=== PATIENT | male | born 1950 | race Caucasian/White ===

== ENCOUNTER 2018-04-30 09:58 | Outpatient (CLI) | payer MEDICARE, BC | END 2018-04-30 09:59 | disposition critical access hospital (66) | LOC: EMS 09:58 | PROVIDERS: ATTEND Surgery | DX: R07.81 Pleurodynia (principal); W11.XXXA Fall on and from ladder, initial encounter; Y92.008 Other place in unspecified non-institutional (private) residence as the place of occurrence of the external cause | CPT/HCPCS: A0425; A0429 ==

== ENCOUNTER 2018-04-30 10:15 | Observation (INO) | payer MEDICARE, BC ==
[2018-04-30] MEDS ORDERED: IOPAMIDOL-300 100 ML VIAL ONE (10:30)
[2018-04-30 10:47] LABS: BASOPHILS % (AUTO) 0.6 %; EOSINOPHILS # (AUTO) 0.3 10^3/uL (0.0-0.7); EOSINOPHILS % (AUTO) 4.8 %; HGB - HEMOGLOBIN 14.7 g/dL (14.0-18.0); LYMPHOCYTES # (AUTO) 1.4 10^3/uL (1.5-3.5); LYMPHOCYTES % (AUTO) 20.8 %; MEAN CORPUSCULAR HEMOGLOBIN 34.7 pg (27.0-31.0); MEAN CORPUSCULAR VOLUME 99.1 fL (80.0-94.0); MEAN PLATELET VOLUME 6.5 fL (7.4-11.4); MONOCYTES # (AUTO) 0.5 10^3/uL (0.0-1.0); MONOCYTES % (AUTO) 7.1 %; NEUTROPHILS # (AUTO) 4.6 10^3/uL (1.5-6.6); NEUTROPHILS % (AUTO) 66.7 %; PLT - PLATELET COUNT 211 10^3/uL (130-450); RED BLOOD COUNT 4.23 10^6/uL (4.70-6.10); RED CELL DISTRIBUTION WIDTH 12.3 % (12.0-15.0); WHITE BLOOD COUNT 6.9 x10^3/uL (4.8-10.8)
--- NOTE | 2018-04-30 10:49 | ED Physician Documentation ---
PD HPI Fall - Stated complaint Stated Complaint: FALL FROM LADDER - History obtained from History obtained from: Patient - History of Present Illness Mechanism of injury: Slipped Fall distance: Standing position, 10 to 15ft Where injury occurred: Home Timing - onset: Today Injury(ies) location: Chest, Back Quality of pain: Pain Associated symptoms: No: LOC, AMS, Amnesia, Seizures, Ear drainage, Nasal drainage, Neck pain, Weakness, Paresthesias, Dyspnea, Nausea / vomiting, Hematemesis, Abdominal distension Symptoms improve with: Rest Worsens with: Movement, Palpation Contributing factors: No: Anticoagulated, Intoxicated Similar symptoms before: Has not had sx before Recently seen: Not recently seen - Additional information Additional information: 67-year-old male who is visiting the [place] to clean out his parents house went up into the attic on a pulldown ladder and was bringing something down from the attic when the ladder collapsed and he fell onto a step and then down stairs. He landed directly on his left chest wall and has pain centered in that area he also has some pain in the left calf. He was not knocked unconscious he has no injury to his head or neck he denies any abdominal pain and he states that his pain is mild if he is not moving or breathing deeply. Review of Systems Constitutional: denies: Fever Eyes: denies: Decreased vision, Photophobia Ears: denies: Ear pain Nose: denies: Congestion Throat: denies: Sore throat Cardiac: reports: Chest pain / pressure Respiratory: denies: Dyspnea, Cough GI: denies: Abdominal Pain, Nausea, Vomiting, Constipation, Diarrhea : denies: Dysuria, Frequency Skin: denies: Rash Musculoskeletal: reports: Back pain, Extremity pain. denies: Neck pain Neurologic: denies: Generalized weakness, Focal weakness, Numbness PD PAST MEDICAL HISTORY - Present Medications Home Medications: Ambulatory Orders Medication Instructions Recorded Confirmed Fluticasone [Flonase] 2 sprays NS DAILY 04/30/18 04/30/18 Olopatadine HCl [Patanase] 1 spray NS DAILY 04/30/18 04/30/18 - Allergies Allergies/Adverse Reactions: Allergies Allergy/AdvReac Type Severity Reaction Status Date / Time Iodinated Contrast- Oral and AdvReac Hives Verified 04/30/18 10:26 IV Dye PD ED PE NORMAL - Vitals Vital signs reviewed: Yes (hypertensive and bradycardic) - General General: Alert and oriented X 3, No acute distress, Well developed/nourished, Other (The patient is on a backboard in C-spine precautions and appears comfortable despite the significant mechanism .) - HEENT HEENT: Atraumatic, PERRL, EOMI - Neck Neck: Supple, no meningeal sign, No bony TTP - Cardiac Cardiac: RRR, No murmur - Respiratory Respiratory: No respiratory distress, Clear bilaterally, Other (There is pain to palpation to the posterolateral chest wall on the left side. There is ecchymosis to the area and crepitance is palpable ) - Abdomen Abdomen: Soft, Non tender - Back Back: No CVA TTP, No spinal TTP - Derm Derm: Normal color, Warm and dry, No rash - Extremities Extremities: No deformity, No edema, Other (There is some mild left calf tenderness laterally ) - Neuro Neuro: Alert and oriented X 3, beater room helper 2-12 intact, No motor deficit, No sensory deficit, Normal speech Eye Opening: Spontaneous Motor: Obeys Commands Verbal: Oriented GCS Score: 15 - Psych Psych: Normal mood, Normal affect Results - Vitals Vitals: Vital Signs - 24 hr 04/30/18 04/30/18 04/30/18 10:15 10:30 11:48 Temperature 36.7 C Heart Rate 48 L 47 L 52 L Respiratory 15 15 15 Rate Blood Pressure 177/93 H 148/83 H 145/85 H O2 Saturation 100 100 100 Oxygen O2 Source Room air - EKG (time done) 1046 Rate: Rate (enter#) (47) Rhythm: Sinus bradycardia Ischemia: Normal ST segments Compare to prior EKG: Old EKG unavailable Computer interpretation: Agree with computer - Labs Labs: Laboratory Tests 04/30/18 04/30/18 04/30/18 10:40 10:40 10:40 WBC 6.9 RBC 4.23 L Hgb 14.7 Hct 41.9 L MCV 99.1 H MCH 34.7 H MCHC 35.0 RDW 12.3 Plt Count 211 MPV 6.5 L Neut # (Auto) 4.6 Lymph # (Auto) 1.4 L Preston # (Auto) 0.5 Eos # (Auto) 0.3 Baso # (Auto) 0.0 Absolute Nucleated RBC 0.01 Nucleated RBC % 0.1 Sodium 137 Potassium 4.5 Chloride 103 Carbon Dioxide 27 Anion Gap 7.0 BUN 25 H Creatinine 1.0 Estimated GFR (MDRD) 75 L Glucose 111 H Calcium 9.2 Total Bilirubin 0.4 AST 39 ALT 37 Alkaline Phosphatase 55 Troponin I < 0.04 Total Protein 6.2 L Albumin 3.8 Globulin 2.4 Albumin/Globulin Ratio 1.6 Lipase 25 - Rads (name of study) CT chest abdomen and pelvis without Radiology: Prelim report reviewed (Impression: 1. Acute posterior lateral left seventh through 11th rib fractures with adjacent mild pulmonary contusion and small pulmonary laceration. No pneumothorax.2 No evidence of acute traumatic injury in the abdomen or pelvis.3 Mild aneurysmal dilation of the ascending thoracic aorta.), EMP read indepedently, See rad report tib fib Radiology: Prelim report reviewed (Impression: Minimally displaced transverse lower fibular diaphyseal fracture.), EMP read indepedently, See rad report PD MEDICAL DECISION MAKING - ED course Complexity details: reviewed results, re-evaluated patient, considered differential, d/w patient, d/w family ED course: 67-year-old male with a significant 15 foot fall onto his back has multiple rib fractures and pulmonary contusion with subcutaneous air. He does appear comfortable when he is not moving. His cervical spine is cleared when he arrives to the emergency department he has had no head injury has no pain to palpation of the bone midline and is able to flex extend and rotate his neck without pain. Dr. Butt is consulted in the case and will admit the patient for observation. - Sepsis Event Vital Signs: Vital Signs - 24 hr 04/30/18 04/30/18 04/30/18 10:15 10:30 11:48 Temperature 36.7 C Heart Rate 48 L 47 L 52 L Respiratory 15 15 15 Rate Blood Pressure 177/93 H 148/83 H 145/85 H O2 Saturation 100 100 100 Oxygen O2 Source Room air Departure - Departure Disposition: 68 [facility] DC/Xfer Clinical Impression: Multiple rib fractures Qualifiers: Encounter type: initial encounter Fracture type: closed Laterality: left Qualified Code(s): S22.42XA - Multiple fractures of ribs, left side, initial encounter for closed fracture Pulmonary contusion Qualifiers: Encounter type: initial encounter Laterality: left Qualified Code(s): S27.321A - Contusion of lung, unilateral, initial encounter Condition: Stable Discharge Date/Time: 04/30/18 13:11
[2018-04-30 11:12] LABS: ALBUMIN 3.8 g/dL (3.2-5.5); ALBUMIN/GLOBULIN RATIO 1.6 (1.0-2.2); BILIRUBIN,TOTAL 0.4 mg/dL (0.2-1.0); CALCIUM 9.2 mg/dL (8.5-10.3); TOTAL PROTEIN 6.2 g/dL (6.7-8.2)
[2018-04-30] MEDS ORDERED: KETOROLAC 60 MG/2 ML VIAL IVP STA (11:18)
--- NOTE | 2018-04-30 12:01 | CT Report ---
Reason: 15 ft fall from ladder L posterior rib bruise Procedure Date: 04/30/2018 Accession Number: [id number] / [id number] Procedure: CT - Chest W/O CPT Code: FULL RESULT: EXAM: CT CHEST, ABDOMEN, AND PELVIS EXAM DATE: 04/30/2018 11:36 AM. CLINICAL HISTORY: Fall from 15 foot ladder. Pain is primarily left-sided. COMPARISONS: None. TECHNIQUE: Routine helical CT imaging was performed through the chest, abdomen, and pelvis. IV contrast: None. Enteric contrast: No. Reconstructions: Coronal and sagittal. In accordance with CT protocol optimization, one or more of the following dose reduction techniques were utilized for this exam: automated exposure control, adjustment of mA and/or KV based on patient size, or use of iterative reconstructive technique. FINDINGS: CHEST: Lungs/Pleura: Ill-defined hazy density in the inferolateral left lower lobe likely represents contusion. Superimposed linear lucency (axial lung algorithm series 3 image 52) likely represents a small pulmonary laceration. No significant pleural effusion. No pneumothorax. No suspicious pulmonary nodule, consolidation, or edema. Mediastinum: The heart size is normal. No pericardial effusion. No mediastinal adenopathy or hematoma. Ascending aorta measures up to 4.5 cm in diameter. No significant atherosclerotic calcifications. ABDOMEN/PELVIS: Solid organs: Noncontrast images of the liver, spleen, pancreas, and bilateral adrenal glands are normal. Small simple left superior pole exophytic cyst. Punctate nephrolithiasis bilaterally. No hydronephrosis or perinephric stranding bilaterally. Gallbladder/Bile Ducts: Unremarkable. Peritoneal Cavity/Bowel: No ascites or pneumoperitoneum. No bowel obstruction or abnormal stool burden. Minimal diverticulosis without diverticulitis. No inflammatory fat stranding. The appendix is well visualized and normal. Pelvic Organs: The urinary bladder and imaged pelvic organs demonstrate no significant abnormality. Vasculature: Minimal atherosclerosis without aneurysm. Bones: Acute fractures of the posterolateral left 7th through 11th ribs with displacement of the eighth and ninth rib fractures. No other acute fracture or other significant osseous abnormality. Other: Subcutaneous emphysema overlying the left rib fractures. IMPRESSION: 1. Acute posterolateral left 7th through 11th rib fractures with adjacent mild pulmonary contusion and small pulmonary laceration. No pneumothorax. 2. No evidence of acute traumatic injury in the abdomen or pelvis. 3. Mild aneurysmal dilatation of the ascending thoracic aorta. RADIA
--- NOTE | 2018-04-30 12:01 | CT Report ---
Reason: 15 ft fall from ladder L side Procedure Date: 04/30/2018 Accession Number: [id number] / [id number] Procedure: CT - Abdomen/Pelvis W/O CPT Code: FULL RESULT: EXAM: CT CHEST, ABDOMEN, AND PELVIS EXAM DATE: 04/30/2018 11:36 AM. CLINICAL HISTORY: Fall from 15 foot ladder. Pain is primarily left-sided. COMPARISONS: None. TECHNIQUE: Routine helical CT imaging was performed through the chest, abdomen, and pelvis. IV contrast: None. Enteric contrast: No. Reconstructions: Coronal and sagittal. In accordance with CT protocol optimization, one or more of the following dose reduction techniques were utilized for this exam: automated exposure control, adjustment of mA and/or KV based on patient size, or use of iterative reconstructive technique. FINDINGS: CHEST: Lungs/Pleura: Ill-defined hazy density in the inferolateral left lower lobe likely represents contusion. Superimposed linear lucency (axial lung algorithm series 3 image 52) likely represents a small pulmonary laceration. No significant pleural effusion. No pneumothorax. No suspicious pulmonary nodule, consolidation, or edema. Mediastinum: The heart size is normal. No pericardial effusion. No mediastinal adenopathy or hematoma. Ascending aorta measures up to 4.5 cm in diameter. No significant atherosclerotic calcifications. ABDOMEN/PELVIS: Solid organs: Noncontrast images of the liver, spleen, pancreas, and bilateral adrenal glands are normal. Small simple left superior pole exophytic cyst. Punctate nephrolithiasis bilaterally. No hydronephrosis or perinephric stranding bilaterally. Gallbladder/Bile Ducts: Unremarkable. Peritoneal Cavity/Bowel: No ascites or pneumoperitoneum. No bowel obstruction or abnormal stool burden. Minimal diverticulosis without diverticulitis. No inflammatory fat stranding. The appendix is well visualized and normal. Pelvic Organs: The urinary bladder and imaged pelvic organs demonstrate no significant abnormality. Vasculature: Minimal atherosclerosis without aneurysm. Bones: Acute fractures of the posterolateral left 7th through 11th ribs with displacement of the eighth and ninth rib fractures. No other acute fracture or other significant osseous abnormality. Other: Subcutaneous emphysema overlying the left rib fractures. IMPRESSION: 1. Acute posterolateral left 7th through 11th rib fractures with adjacent mild pulmonary contusion and small pulmonary laceration. No pneumothorax. 2. No evidence of acute traumatic injury in the abdomen or pelvis. 3. Mild aneurysmal dilatation of the ascending thoracic aorta. RADIA
[2018-04-30] MEDS ORDERED: KETOROLAC 30 MG/ML VIAL IVP STA (12:09)
--- NOTE | 2018-04-30 12:41 | HISTORY & PHYSICAL EXAMINATION ---
Chief Complaint - Chief Complaint Chief Complaint: Left chest pain History of Present Illness - Admitted From Admitted From:: ED - History Obtained From Records Reviewed: yes History obtained from: pt Exam Limitations: none - History of Present Illness HPI Comment/Other: 67 y/o man fell was coming down from the attic using a pulldown ladder and the ladder collapsed causing him to fall. He is visiting from out of town and was to be flying home today. However, he sustained several rib fractures and a pulmonary contusion. He currently denies any respiratory distress and is able to take a deep breath with pain, but without difficulty. SubQ air and a pulmonary contusion is seen on CT, but no pnuemothorax at this point. History - Past Medical History : reports: Other Other Past Medical History: prostate ca, kidney stones - Family & Social History Living Situation: With spouse/s.o. Meds/Allgy - Home Medications Home Medications: Ambulatory Orders Medication Instructions Recorded Confirmed Fluticasone [Flonase] 2 sprays NS DAILY 04/30/18 04/30/18 Olopatadine HCl [Patanase] 1 spray NS DAILY 04/30/18 04/30/18 - Allergies Allergies/Adverse Reactions: Allergies Allergy/AdvReac Type Severity Reaction Status Date / Time Iodinated Contrast- Oral and AdvReac Hives Verified 04/30/18 10:26 IV Dye Review of Systems - Respiratory Respiratory: reports: Other (left-sided chest pain, but no SOB or dyspnea) - Musculoskeletal Musculoskeletal: reports: Other (pain in left lower leg) - All Other Systems All Other Systems: reports: Reviewed and negative Exam - Vital Signs Reviewed Vital Signs: Yes Vital Signs: Vital Signs x48h Temp Pulse Resp BP Pulse Ox 04/30/18 11:48 52 L 15 145/85 H 100 04/30/18 10:30 47 L 15 148/83 H 100 04/30/18 10:15 36.7 C 48 L 15 177/93 H 100 - Physical Exam General Appearance: positive: No acute distress, Alert Eyes Bilateral: positive: EOMI, No scleral icterus Neck: positive: Nml inspection, Trachea midline Respiratory: positive: No respiratory distress, Breath sounds nml, Other ( moderate left-sided chest tenderness) Cardiovascular: positive: Regular rate & rhythm, No murmur Peripheral Pulses: positive: 2+ Abdomen: positive: Non-tender, Nml bowel sounds, No distention. negative: Tenderness Extremities: positive: Full ROM Neurologic/Psychiatric: positive: Oriented x3, Other (no focal deficits) Conclusion/Plan - Lab Results Fish Bones: 05/01/18 04:25 05/01/18 04:25 - Diagnostic Imaging Results Diagnostic Imaging Results: positive: Final report reviewed (images reviewed) Diagnostic Imaging Results Comments: CT shows posteriolateral fractures of ribs 7-11; pulmonary contusion; possible small pulmonary laceration. - Other Other Results/Comments: Impression: L-sided Rib fractures with pulmonary contusion Plan: Admit for observation; aggressive pulmonary toilet (including IS, Acapella , cough/deep breath); monitor O2 sat; f/u CXR in am. Xray of L tib/fib pending.
[2018-04-30 13:13] LABS: BILIRUBIN,URINE NEGATIVE (NEGATIVE); GLUCOSE, URINE (UA) NEGATIVE (NEGATIVE); KETONES,URINE (UA) NEGATIVE (NEGATIVE); LEUKOCYTE ESTERASE, URINE NEGATIVE (NEGATIVE); NITRITE,URINE NEGATIVE (NEGATIVE); OCCULT BLOOD,URINE NEGATIVE (NEGATIVE); PH,URINE 6.5 PH (5.0-7.5); PROTEIN,URINE NEGATIVE (NEGATIVE); UROBILINOGEN,URINE 0.2 (NORMAL) E.U./dL (NORMAL)
[2018-04-30 13:14] LABS: CLARITY,URINE CLEAR (CLEAR)
[2018-04-30] MEDS: ACETAMINOPHEN 500 MG TABLET PO SCH ×4 (14:15→23:41)
--- NOTE | 2018-04-30 15:51 | XRAY Report ---
Reason: fall Procedure Date: 04/30/2018 Accession Number: [id number] / [id number] Procedure: XR - Tib/Fib LT CPT Code: FULL RESULT: EXAM: LEFT TIBIA/FIBULA RADIOGRAPHY EXAM DATE: 04/30/2018 03:42 PM. CLINICAL HISTORY: Fall from ladder onto left side COMPARISON: None. TECHNIQUE: 2 views. FINDINGS: Bones: Transverse lowers fibular diaphyseal fracture with 2 mm of fracture margin offset. No fracture involving the tibia. Joints: Mild degenerative changes involving the knee. Soft Tissues: Normal. No soft tissue swelling. IMPRESSION: Minimally displaced transverse lower fibular diaphyseal fracture. RADIA
[2018-04-30] MEDS: SODIUM CHLORIDE FLUSH 0.9% 10 ML SYRINGE IVP SCH ×2 (16:18→23:41)
[2018-04-30] MEDS: MORPHINE 2 MG/ML SYRINGE IVP PRN ×3 (16:18→21:53)
[2018-04-30] MEDS: SODIUM CHLORIDE FLUSH 0.9% 10 ML SYRINGE IVP PRN ×2 (19:02→21:54)
[2018-04-30] MEDS: CELECOXIB 100 MG CAPSULE PO SCH (19:02)
--- NOTE | 2018-04-30 19:14 | CONSULTATION NOTE ---
Referring Provider Name of Referring Provider:: Dr. Orozco Consult Date: 04/30/18 (Fractured ribs, now w/complicating factor of fibular fx. ) Chief Complaint - Chief Complaint Chief Complaint: LLE fibula fracture History of Present Illness - Admitted From Admitted From:: ED - History Obtained From Records Reviewed: yes History obtained from: chart review, patient Exam Limitations: none - History of Present Illness HPI Comment/Other: Rubio Byrd (Bill) is a healthy 67-year old white male with a minimal past medical history of only chronic sinusitis, history of kidney stones, and recent prostate cancer now status post radiation treatments with his last PSA at 2.5. He presented to the ED after an accidental fall from a ladder in which there was a mechanical failure with the ladder he was using. Luckily he fell backward as this was not as far as if he would have fell forward that may have resulted in 2-floors in height. He states that he and his are visiting the [place] to clean out his parents house. He states that he went up into the attic to use a pulldown ladder and was bringing something down from the attic when the ladder collapsed and he fell onto a step and then down stairs. He landed directly on his left chest wall and has pain centered in that area he also has some pain in the left calf. He was not knocked unconscious he has no injury to his head or neck he denies any abdominal pain and he states that his pain is mild if he is not moving or breathing deeply. Imaging confirmed left rib fractures to #7-11, with pulmonary contusion. Vital signs were only slightly abnormal with an elevated blood pressure of 145/85, heart rates in the 50's. There were no significant laboratory abnormalities. General surgery was the original admitting service and Hospitalist service was consulted when the LLE fracture was discovered to assist in managing medically. I have spoken with Dr. Shields-orthopedic surgery who will plan to see in the AM. Thank you for this consult. History - Past Medical History Cardiovascular: reports: None Respiratory: reports: Other (chronic sinusitis) Neuro: reports: None Endocrine/Autoimmune: reports: None GI: reports: Other (inguinal hernia-now repaired) VOCATIONAL EDUCATION PROFESSIONAL: reports: None : reports: Nocturia, Other (status post prostate cancer) HEENT: reports: Chronic sinusitis Psych: reports: None Musculoskeletal: reports: None Derm: reports: None MRSA Hx?: No Other Past Medical History: prostate ca, kidney stones - Past Surgical History General: reports: Colonoscopy (~10 years ago, due for routine colonoscopy) Other past surgical history: radiation treatments for prostate cancer within the past year. - Family & Social History Family History: Mother: , Cancer, Father: , Alcoholism, CVA/TIA , Sister: Alive and Well, Cancer Family History Comment/Other: The patient mother of ovarian cancer, his fathe after complications of alcoholism and a CVA. He has one sister who is alive and well. She had uterine cancer, and thought to be in remission since her hysterectomy. Living arrangement: At home Living Situation: With spouse/s.o. Social History Notes: The patient has a named, Raysa of 39 years. They have no children. He is retired and was a high school computer science teacher. They live primarily in [place], [place]. They own a home in [place], [place] that they live at in the winter months. They have an inherited 20-acre property in [place], [place] that they are getting ready to sell. The patient remains very active and enjoys , travel, scuba diving, running, bicycling, and playing golf. He denies and current or past use of tobacco or illicit drugs. He admits to daily use of wine (2-3 glasses/day), and states that he had brewed his own in the past. He claims to eat very well organic foods. He wishes to be a FULL code. - Substance History Use: Uses substance without health or social issues: NONE Abuse: Recurrent use of substance despite neg consequences: NONE Dependence: Experiences withdrawal or developed tolerances: NONE - POLST Patient has POLST: No POLST Status: Full Code Meds/Allgy - Home Medications Home Medications: Ambulatory Orders Medication Instructions Recorded Confirmed Fluticasone [Flonase] 2 sprays NS DAILY 04/30/18 04/30/18 Olopatadine HCl [Patanase] 1 spray NS DAILY 04/30/18 04/30/18 - Allergies Allergies/Adverse Reactions: Allergies Allergy/AdvReac Type Severity Reaction Status Date / Time Iodinated Contrast- Oral and AdvReac Hives Verified 04/30/18 10:26 IV Dye Review of Systems - Constitutional Constitutional: denies: Fatigue, Fever, Chills, Weight gain, Weight loss - Eyes Eyes: denies: Pain, Irritation, Vision loss - Ears, Nose & Throat Ears, Nose & Throat: reports: Postnasal drainage. denies: Ear pain, Hearing loss, Hearing aids - Cardiovascular Cariovascular: denies: Irregular heart rate, Palpitations, Chest pain, Edema - Respiratory Respiratory: denies: Cough, Sputum production, Wheezing, Snoring - Gastrointestinal Gastrointestinal: denies: Abdominal pain, Abdominal distention, Constipation, Diarrhea, Change in bowel habits - Genitourinary Genitourinary: reports: Nocturia. denies: Dysuria, Frequency, Urgency, Hematuria - Musculoskeletal Musculoskeletal: denies: Muscle pain, Back pain, Muscle aches, Stiffness - Integumentary Integumentary: denies: Rash, Pruritis, Lesions, Dryness - Neurological Neurological: denies: General weakness, Focal weakness, Headache, Dizziness - Psychiatric Psychiatric: denies: Depression, Anxiety, Suicidal - Endocrine Endocrine: denies: Polyuria, Polydypsia, Polyphagia - Hematologic/Lymphatic Hematologic/Lymphatic: denies: Anemia, Bruising, Petechiae - All Other Systems All Other Systems: reports: Reviewed and negative Exam - Vital Signs Reviewed Vital Signs: Yes Vital Signs: Vital Signs x48h Temp Pulse Pulse Resp BP BP Pulse Ox 04/30/18 15:40 36.6 C 55 L 16 128/81 H 99 04/30/18 13:28 36.8 C 54 L 20 135/79 H 98 04/30/18 12:30 36.7 C 52 L 15 138/77 H 99 - Physical Exam General Appearance: positive: No acute distress, Alert Eyes Bilateral: positive: Normal inspection, PERRL ENT: positive: ENT inspection nml, Pharynx nml, No signs of dehydration Neck: positive: Nml inspection, Thyroid nml, No JVD, Trachea midline Respiratory: positive: Chest non-tender, No respiratory distress, Breath sounds nml Cardiovascular: positive: Regular rate & rhythm, No murmur, No gallop Peripheral Pulses: positive: 2+ Abdomen: positive: Non-tender, Nml bowel sounds, No distention Back: positive: CVA tenderness (L) (mild bruising, swelling.) Skin: positive: Color nml, No rash, Warm, Dry Extremities: positive: Non-tender, Full ROM, No pedal edema, Calf tenderness, Other (LLE mild swelling and tenderness with palpation) Neurologic/Psychiatric: positive: Oriented x3, CN's nml (2-12), Motor nml, Sensation nml, Mood/affect nml Reflexes: Bicep (R): 4+, Bicep (L): 4+, Ankle (R): 4+, Ankle (L): 4+ Conclusion/Plan - Diagnosis Diagnosis: Unspecified fracture of shaft of unspecified fibula, initial encounter for closed fracture (S82.409A). History of prostate cancer (Z85.46). Closed rib fracture (S22.39XA). Fall as cause of accidental injury at home as place of occurrence(W19.XXXA). Pulmonary contusion (S27.329A) - Plan Plan: Plan to continue pulmonary toileting, continue nasal spray and treat pain as needed. Daily chest x-ray. In regards to the LLE fracture, ortho surgery suggests to GREG wrap this evening, and the patient will be placed in a boot prior to discharge. PT consult to evaluate in the AM. Activity as tolerated, and let pain be the guide as to the amount of ambulation. - Lab Results Lab results reviewed: Yes Fish Bones: 05/01/18 04:25 05/01/18 04:25 - Diagnostic Imaging Results Diagnostic Imaging Results: positive: Final report reviewed Diagnostic Imaging Results Comments: EXAM: CT CHEST, ABDOMEN, AND PELVIS EXAM DATE: 04/30/2018 11:36 AM. IMPRESSION: 1. Acute posterolateral left 7th through 11th rib fractures with adjacent mild pulmonary contusion and small pulmonary laceration. No pneumothorax. 2. No evidence of acute traumatic injury in the abdomen or pelvis. 3. Mild aneurysmal dilatation of the ascending thoracic aorta. EXAM: LEFT TIBIA/FIBULA RADIOGRAPHY EXAM DATE: 04/30/2018 03:42 PM. IMPRESSION: Minimally displaced transverse lower fibular diaphyseal fracture. - EKG Results EKG Interpreted Independently: Yes
[2018-05-01 05:04] LABS: HGB - HEMOGLOBIN 13.6 g/dL (14.0-18.0); MEAN CORPUSCULAR HGB CONC 35.2 g/dL (32.0-36.0); MEAN CORPUSCULAR VOLUME 99.4 fL (80.0-94.0); MEAN PLATELET VOLUME 6.6 fL (7.4-11.4); RED BLOOD COUNT 3.89 10^6/uL (4.70-6.10); RED CELL DISTRIBUTION WIDTH 12.3 % (12.0-15.0); WHITE BLOOD COUNT 6.6 x10^3/uL (4.8-10.8)
[2018-05-01 05:13] LABS: CALCIUM 8.3 mg/dL (8.5-10.3)
[2018-05-01] MEDS: ACETAMINOPHEN 500 MG TABLET PO SCH ×2 (05:31→09:45)
[2018-05-01] MEDS ORDERED: FLUTICASONE NASAL SPRAY NAS SCH (09:00)
--- NOTE | 2018-05-01 09:18 | PROVIDER PROGRESS NOTE ---
Subjective - Prog Note Date Prog Note Date: 05/01/18 Prog Note Time: 09:15 - Subjective Subjective: Notified lastnight that pt has fibula fracture. Ortho was consulted and saw pt this am. Currently he is up in chair. Has been ambulating. Was seen by ortho and per pt, a boot was recommended. Viewed his cxr, no obvious PTX but official report is pending. He has been doing very well with IS and flutter valve. Objective - Vital Signs/Intake & Output Reviewed Vital Signs: Yes Vital Signs: Vital Signs x48h Temp Pulse Resp BP BP Pulse Ox 05/01/18 08:00 36.6 C 51 L 18 158/88 H 100 05/01/18 04:33 36.4 C L 46 L 18 131/70 H 100 Intake & Output: Intake & Output 04/28/18 04/29/18 04/30/18 05/01/18 23:59 23:59 23:59 23:59 Intake Total 1450 800 Balance 1450 800 - Objective General Appearance: positive: No acute distress, Alert Neck: positive: Nml inspection, Trachea midline Respiratory: positive: Chest non-tender (left chest tenderness to palpation), No respiratory distress, Breath sounds nml Cardiovascular: positive: Regular rate & rhythm Extremities: positive: Other (mild-mod tenderness of L lower leg above ankle, but pt has been ambulating on it. States he is trying to keep his weight off of it.) - Lab Results Fish Bones: 05/01/18 04:25 05/01/18 04:25 Other Labs: Lab Results x24hrs 05/01/18 05/01/18 04/30/18 Range/Units 04:25 04:25 12:59 WBC 6.6 (4.8-10.8) x10^3/uL RBC 3.89 L (4.70-6.10) 10^6/uL Hgb 13.6 L (14.0-18.0) g/dL Hct 38.7 L (42.0-52.0) % MCV 99.4 H (80.0-94.0) fL MCH 35.0 H (27.0-31.0) pg MCHC 35.2 (32.0-36.0) g/dL RDW 12.3 (12.0-15.0) % Plt Count 187 (130-450) 10^3/uL MPV 6.6 L (7.4-11.4) fL Sodium 134 L (135-145) mmol/L Potassium 3.5 (3.5-5.0) mmol/L Chloride 99 L (101-111) mmol/L Carbon Dioxide 26 (21-32) mmol/L Anion Gap 9.0 (6-13) BUN 29 H (6-20) mg/dL Creatinine 1.0 (0.6-1.2) mg/dL Estimated GFR (MDRD) 75 L (>89) Glucose 106 H (70-100) mg/dL Calcium 8.3 L (8.5-10.3) mg/dL Urine Color YELLOW Urine Clarity CLEAR (CLEAR) Urine pH 6.5 (5.0-7.5) PH Ur Specific [place] 1.020 (1.002-1.030) Urine Protein NEGATIVE (NEGATIVE) mg/dL Urine Glucose (UA) NEGATIVE (NEGATIVE) mg/dL Urine Ketones NEGATIVE (NEGATIVE) mg/dL Urine Occult Blood NEGATIVE (NEGATIVE) Urine Nitrite NEGATIVE (NEGATIVE) Urine Bilirubin NEGATIVE (NEGATIVE) Urine Urobilinogen 0.2 (NORMAL) (NORMAL) E.U./dL Ur Leukocyte Esterase NEGATIVE (NEGATIVE) Ur Microscopic Review NOT INDICATED Urine Culture Comments NOT INDICATED - Diagnostic Imaging Diagnostic Imaging Results: positive: Other (images reviewed) Assessment/Plan - Problem List (1) Pulmonary contusion Impression: Pulmonary contusion with pulmonary laceration: I explained to the pt that with the pulmonary laceration, I would not recommend flying home (he was scheduled to fly home yesterday) because of the risk of PTX. I would recommend that once he gets home, he follows up with his PCP and have a repeat cxr at least or repeat CT to re-evaluate for healing of the laceration prior to flying (he is scheduled to fly to [place] a week from now). He should continue with the Incentive Spirometry and Acapella flutter valve and cough/deep breathing exercises for at least a week (expect the laceration should heal in 7-10days). Continue a 5-7day course of Tylenol and Celebrex for pain control with a break through low dose narcotic if needed. He has agreed to drive home and will f/u with his PCP in [place]. Qualifiers: Encounter type: initial encounter Laterality: left Qualified Code(s): S27.321A - Contusion of lung, unilateral, initial encounter
--- NOTE | 2018-05-01 09:43 | Discharge Plan ---
Discharge Plan Disposition: 01 Home, Self Care Condition: Stable Diet: Regular (avoid sodas/kierra while fracture is healing) Activity Restrictions: Additional Comments (see below) Shower Restrictions: No Driving Restrictions: No (stop every 1.5hrs and walk around a few minutes) Assistance Devices: Other (walking boot) Weight Bearing: Partial Weight (left leg) Additional Instructions or Follow Up instructions: Pt should not fly home, he will drive home. He will f/u with his PCP in [place] and will get a repeat CXR or CT to re-evaluate the pulmonary laceration. No Smoking: If you smoke, Please STOP! Call for help.
[2018-05-01] MEDS: CELECOXIB 100 MG CAPSULE PO SCH (09:45)
[2018-05-01] MEDS: SODIUM CHLORIDE FLUSH 0.9% 10 ML SYRINGE IVP SCH (09:45)
--- NOTE | 2018-05-01 09:58 | DISCHARGE SUMMARY ---
"Discharge Summary Admit Date: 04/30/18 Discharge Date: 05/01/18 Discharging Provider: Francy Orozco MD Code Status: Attempt Resuscitation Condition at Discharge: Stable Discharge Disposition: 01 Home, Self Care - DIAGNOSES Admission Diagnoses: L Pulmonary Contusion; L Pulmonary laceration; fall; L rib fractures; L fibula fracture Discharge Diagnoses with Status of Each Condition: L Pulmonary Contusion - stable; L Pulmonary laceration - stable; fall; L rib fractures -stable; L fibula fracture -stable - HPI History of Present Illness: 67y/o man coming down TDX ladder fell landing on the left side. He was evaluated in the ED and CT chest showed fractures of ribs 7-11 on the left with an associated pulmonary contusion and pulmonary laceration with subcutaneous air but no pneumothorax. Xray of the tib-fib also showed a fibular fracture. He was admitted for observation and aggressive pulmonary toilet was initiated with incentive spirometry, flutter valve, and cough/deep breathing exercises. He was seen by ortho 05/01 who recommended a boot. - CONSULTS | PROCEDURES Consultations: Hospitalist; ortho - HOSPITAL COURSE Hospital Course: I explained to the pt that with the pulmonary laceration, I would not recommend flying home (he was scheduled to fly home yesterday) because of the risk of PTX. I would recommend that once he gets home, he follows up with his PCP and have a repeat cxr at least or repeat CT to re-evaluate for healing of the laceration prior to flying (he is scheduled to fly to [place] a week from now). He should continue with the Incentive Spirometry and Acapella flutter valve and cough/deep breathing exercises for at least a week (expect the laceration should heal in 7-10days). Continue a 5-7day course of Tylenol and Celebrex for pain control with a break through low dose narcotic if needed. He has agreed to drive home and will f/u with his PCP in [place]. - ALLERGIES Allergies/Adverse Reactions: Allergies Allergy/AdvReac Type Severity Reaction Status Date / Time Iodinated Contrast- Oral and AdvReac Hives Verified 04/30/18 10:26 IV Dye - MEDICATIONS Home Medications: Ambulatory Orders Medication Instructions Recorded Confirmed Fluticasone [Flonase] 2 sprays NS DAILY 04/30/18 04/30/18 Olopatadine HCl [Patanase] 1 spray NS DAILY 04/30/18 04/30/18 - PHYSICAL EXAM AT DISCHARGE General Appearance: positive: No acute distress, Alert Eyes Bilateral: positive: Normal inspection Neck: positive: Nml inspection, Trachea midline Respiratory: positive: No respiratory distress, Breath sounds nml Cardiovascular: positive: Regular rate & rhythm Abdomen: positive: Non-tender, Nml bowel sounds Extremities: positive: Full ROM, Other (mild swelling of left lower leg above ankle) - LABS Result Diagrams: 05/01/18 04:25 05/01/18 04:25 - FOLLOW UP Follow Up: He will f/u with his PCP for repeat imaging."
--- NOTE | 2018-05-01 12:38 | XRAY Report ---
Reason: rib fx with subQ air; rule out PTX Procedure Date: 05/01/2018 Accession Number: [id number] / [id number] Procedure: XR - Chest 2 View X-Ray CPT Code: 98319 FULL RESULT: EXAM: CHEST RADIOGRAPHY EXAM DATE: 05/01/2018 08:02 AM. CLINICAL HISTORY: Small pulmonary lacerations seen on chest CT. Rib fracture with subcutaneous air. Concern for pneumothorax. COMPARISON: Chest CT dated 04/30/2018. TECHNIQUE: 2 views. FINDINGS: Lungs/Pleura: Miniscule left apical pneumothorax redemonstrated measuring 6 mm of pleural separation near the apex. The pleural line is not well visualized at the apex due to overlying shadows from the ribs and clavicle. No focal consolidation. Irregular opacities in the left lung base posteriorly. These are similar to the prior examination given differences in technique. Mediastinum: Heart and mediastinal contours are unremarkable. Other: None. IMPRESSION: 1. Miniscule left-sided pneumothorax measuring 6 mm of pleural separation near the apex. This is similar to the prior examination given differences in technique. 2. Irregular opacities in the left lung base are also redemonstrated and similar. The findings discussed immediately with AIDEE Alejandre by phone on 05/01/2018 at 12:36 PM RADIAnselmo The above findings were discussed with AIDEE Alejandre by Dr. Janine Machado at 12:37 hrs on 05/01/18.
[2018-05-01 13:24] VITALS: BP 158/88
--- NOTE | 2018-05-01 14:36 | CONSULTATION NOTE ---
DATE OF SERVICE: 05/01/2018 Physician: Agustin Shileds MD REQUESTING PROVIDER: HOLGER Gutierrez REASON FOR CONSULTATION: Left fibula fracture. HISTORY OF PRESENT ILLNESS: The patient is a 67-year-old male who resides in [place], but is a [place] he misstepped off a ladder, or the ladder collapsed in some way, causing him to fall down on his left torso and injure his left leg at the same time. He was brought to the emergency room with pain in these areas and admitted to the hospital because of his rib fractures and a worry of lung contusion or partial pneumo. The patient had been able to ambulate on his foot and ankle with minimal pain as he arrived to the hospital. The patient's present complaints at this time are that he has a little bit of clicking in his ankle when he ambulates, but the pain is not severe, and some rib discomfort but no difficulty breathing. EXAM: Examination revealed him to have tenderness at the fibula about 4 inches proximal to the ankle joint. No swelling per se around the ankle, and no tenderness directly around the ankle, especially no tenderness in the deltoid ligament complex, and no severe pain in the ankle or instability with lateral stress or rotational stress. The foot does not yet have bruising or discoloration, and neurovascular exam is normal. The patient can freely move his ankle and is not much bothered by his bony crepitation. STUDIES: Review of x-rays shows the patient to have a transverse fracture of his fibula, 4 inches above the joint line that is anatomically aligned. He does not have evidence of subluxation of his talus in the mortise and appears to not have significant injury to the ligaments around the ankle or the syndesmosis. IMPRESSION: The patient has an isolated fibular distal shaft fracture, which will be managed in a CAM walker boot with weightbearing. PLAN: I am recommending that he have orthopedic followup within 7-10 days, during the time that he will be in [place]. He is welcome to follow here if he happens to be on [place] at the time. TD: 05/01/2018 09:09 [facility]
== END 2018-05-01 12:50 | disposition home or self-care (01) ==
LOC: EDUNIT# → ED 10:15 → MS2 12:09
PROVIDERS: ADMIT Surgery; ATTEND Surgery
DX: S27.0XXA Traumatic pneumothorax, initial encounter (principal); S27.331A Laceration of lung, unilateral, initial encounter; S22.42XA Multiple fractures of ribs, left side, initial encounter for closed fracture; S89.302A Unspecified physeal fracture of lower end of left fibula, initial encounter for closed fracture; W11.XXXA Fall on and from ladder, initial encounter; W10.9XXA Fall (on) (from) unspecified stairs and steps, initial encounter; Y93.E6 Activity, residential relocation; Y92.008 Other place in unspecified non-institutional (private) residence as the place of occurrence of the external cause; J32.9 Chronic sinusitis, unspecified; Z85.46 Personal history of malignant neoplasm of prostate; Z87.442 Personal history of urinary calculi; Z92.3 Personal history of irradiation
CPT/HCPCS: 36415; 71046; 71250; 73590; 74176; 80048; 80053; 81003; 83690; 84484; 85025; 85027; 96374; 96375; 96376; 97161; 99284; A9270; G0378; G8978; G8979; G8980; J2270; 81001; 87086; 93005